=== PATIENT | male | born 1965 | race Two or more races ===

== ENCOUNTER 2022-02-19 08:17 | Inpatient (IN) | payer OTHER ==
[~2022-02-19] VITALS: Ht 165.1 cm; Wt 65.2 kg
[2022-02-19] MEDS ORDERED: SODIUM CHLORIDE 0.9% 1,000 ML IV ONE (08:30)
[2022-02-19] MEDS ORDERED: HYDROcodone-ACET 10/325MG TAB PO ONE (08:30)
[2022-02-19] MEDS ORDERED: ACYCLOVIR 400 MG TAB PO ONE (08:30)
[2022-02-19] MEDS ORDERED: FLEET ENEMA(ADULT) 135 ML PR ONE (08:30)
[2022-02-19 09:08] LABS: Basophils # (auto) 0.2 10 ^3/uL (0-0.2); Basophils % (auto) 2.2 % (0.0-2.0); Eosinophils # (auto) 0 10 ^3/uL (0-0.8); Eosinophils % (auto) 0.5 % (0.0-7.0); Hematocrit 41.6 % (41.0-53.0); Hemoglobin 14.9 g/dL (13.5-17.5); Lymphocytes # (auto) 1.5 10 ^3/uL (0.4-5.4); Lymphocytes % (auto) 17.6 % (10.0-50.0); Mean Corpuscular Hemoglobin 31.2 pg (28.0-32.0); Mean Corpuscular Hgb Conc. 35.8 g/dL (32.0-36.0); Mean Corpuscular Volume 87.3 fL (80.0-100.0); Monocytes # (auto) 0.6 10 ^3/uL (0-1.3); Monocytes % (auto) 6.9 % (0.0-12.0); Neutrophils # (auto) 6.2 10 ^3/uL (1.6-8.6); Neutrophils % (auto) 72.8 % (37.0-80.0); Nucleated Red Blood Cells % 0.1 %; Red Blood Cells 4.76 10^6/uL (4.5-5.90); Red Cell Distribution Width 12.5 % (11.8-14.3); White Blood Cell 8.4 10^3/uL (4.4-10.8)
[2022-02-19 09:27] LABS: Albumin 3.2 g/dL (3.4-5.0)
[2022-02-19 09:31] LABS: BUN/Creatinine Ratio 14.6; Bilirubin, Total 0.8 mg/dL (0.2-1.0); Total Protein 8.1 g/dL (6.4-8.2)
[2022-02-19] MEDS ORDERED: BENZOCAINE (DENTAL) 20 % SPRAY 60ML MT ONE (10:00)
[2022-02-19] MEDS ORDERED: NITROGLYCERIN 0.4 MG SL TAB SL PRN (10:45)
[2022-02-19] MEDS ORDERED: MORPHINE SULFATE INJECTION 2 MG/ML SYRG IV PRN ×2 (10:45)
[2022-02-19] MEDS ORDERED: GASTROGRAFIN 120 ML SOL ONE (11:14)
[2022-02-19] MEDS: SODIUM CHLORIDE 0.9% 1,000 ML IV SCH (11:15)
[2022-02-19] MEDS: ONDANSETRON HCL 4 MG/2 ML VIAL IV PRN ×2 (13:02→22:20)
[2022-02-19 13:58] LABS: INR 1.16 (0.9-1.15)
[2022-02-19] MEDS ORDERED: LABETALOL HCL 5 MG/ML 4ML SYRINGE IV PRN (14:30)
[2022-02-19] MEDS ORDERED: HYDROmorphone HCL 2 MG/ML VL IV PRN (14:30)
[2022-02-19] MEDS ORDERED: ONDANSETRON HCL 4 MG/2 ML VIAL IV ONE (14:30)
[2022-02-19 16:00] VITALS: BP 145/105
[2022-02-19 16:09] VITALS: BP 178/126
[2022-02-19] MEDS: HYDROmorphone HCL 2 MG/ML VL IV PRN ×2 (17:28→22:27)
[2022-02-19 22:00] VITALS: BP 146/114
[2022-02-20] MEDS: SODIUM CHLORIDE 0.9% 1,000 ML IV SCH (01:56)
[2022-02-20 05:00] VITALS: BP 158/99
[2022-02-20] MEDS: HYDROmorphone HCL 2 MG/ML VL IV PRN ×4 (05:08→22:43)
[2022-02-20] MEDS: ONDANSETRON HCL 4 MG/2 ML VIAL IV PRN ×3 (05:08→23:14)
[2022-02-20] MEDS ORDERED: BISACODYL 5 MG EC TAB PO ONE (08:00)
[2022-02-20 09:00] VITALS: BP 138/101
[2022-02-20] MEDS ORDERED: SODIUM CHLORIDE LOCK 10 ML ONE (09:05)
[2022-02-20] MEDS ORDERED: diphenhdrAMINE HCL 50 MG/1 ML VL ONE (09:06)
[2022-02-20] MEDS: MIDAZOLAM HCL 5 MG/ML-1ML VIAL ONE ×2 (09:36→09:40)
[2022-02-20] MEDS: fentaNYL CITRATE 100 MCG/2 ML VL ONE ×2 (09:36→09:40)
[2022-02-20 12:45] VITALS: BP 114/58
[2022-02-20 12:47] VITALS: BP 133/96
[2022-02-20] MEDS ORDERED: HYDROCORTISONE 2.5% TOPICAL CREAM 30GM TUBE PR PRN ×2 (13:30→14:30)
[2022-02-20] MEDS ORDERED: TPN PER PHARMACY 0 ML IV SCH (15:00)
[2022-02-20 16:35] LABS: Albumin 2.9 g/dL (3.4-5.0); Calcium 8.5 mg/dL (8.5-10.1); Magnesium 2.8 mg/dL (1.6-2.6); Potassium 4.1 mmol/L (3.5-5.1)
[2022-02-20] MEDS: D5W/SOD CHL 0.45%/KCL 20MEQ 1,000 ML IV SCH ×2 (16:35→22:35)
[2022-02-20 16:42] LABS: BUN/Creatinine Ratio 19.5; Bilirubin, Total 0.5 mg/dL (0.2-1.0); Phosphorus 2.3 mg/dL (2.5-4.90); Pre Albumin 9.5 mg/dL (20.0-40.0); Total Protein 6.8 g/dL (6.4-8.2)
[2022-02-20 16:47] VITALS: BP 144/104
[2022-02-20] MEDS ORDERED: POTASSIUM PHOSPHATE 22 MEQ in SODIUM CHL 0.9% 100 ML IV ONE (17:30)
[2022-02-20] MEDS ORDERED: AMINO ACID INFUSION IN D10W 1,000 ML IV NR (20:00)
[2022-02-20] MEDS: SENNA 8.6 MG TAB PO SCH (20:49)
[2022-02-20 21:20] VITALS: BP 163/109
[2022-02-21] MEDS ORDERED: DEXTROSE (50%) 50ML SYRG IV SCH
[2022-02-21] MEDS: ACCU-CHEK COMFORT CURVE STRIP VI SCH ×4 (00:13→18:12)
[2022-02-21] MEDS: HYDROmorphone HCL 2 MG/ML VL IV PRN ×8 (02:13→20:36)
[2022-02-21 05:00] VITALS: BP 129/92
[2022-02-21] MEDS: InsuLIN REG 1unit/0.01ml Soln (100units/ml) SC SCH ×4 (06:00→18:53)
[2022-02-21] MEDS: D5W/SOD CHL 0.45%/KCL 20MEQ 1,000 ML IV SCH ×3 (06:13→23:50)
[2022-02-21] MEDS: ONDANSETRON HCL 4 MG/2 ML VIAL IV PRN (06:21)
[2022-02-21 07:12] LABS: Albumin 2.8 g/dL (3.4-5.0); BUN/Creatinine Ratio 15.9; Calcium 8.3 mg/dL (8.5-10.1); Magnesium 2.5 mg/dL (1.6-2.6); Potassium 4.2 mmol/L (3.5-5.1)
[2022-02-21 07:15] LABS: Bilirubin, Total 0.5 mg/dL (0.2-1.0); Total Protein 6.8 g/dL (6.4-8.2)
[2022-02-21] MEDS ORDERED: ceFAZolin 1GM/50ML 50 ML IV ONE (07:36)
[2022-02-21 09:00] VITALS: BP 126/95
[2022-02-21] MEDS ORDERED: SODIUM PHOSPHATES 40 MEQ in D5W 5% 250 ML IV ONE (10:00)
[2022-02-21] MEDS ORDERED: BUPIVACAINE W/ EPINEPH 0.25% INJ 50ML MDV ONE (12:00)
[2022-02-21] MEDS ORDERED: fentaNYL CITRATE 100 MCG/2 ML VL ONE ×2 (12:03→12:47)
[2022-02-21] MEDS ORDERED: MEPERIDINE HCL (50 MG/ML) 1 ML VIAL ONE (12:03)
[2022-02-21] MEDS ORDERED: SUCCINYLCHOLINE CHLORIDE 20 MG/ML 10ML VIAL IV ONE (12:03)
[2022-02-21] MEDS ORDERED: MIDAZOLAM HCL 2MG/2ML 2ml VIAL (1mg/ml) ONE ×2 (12:03→16:03)
[2022-02-21] MEDS ORDERED: ONDANSETRON HCL 4 MG/2 ML VIAL IV PRN (12:15)
[2022-02-21] MEDS ORDERED: LABETALOL HCL 5 MG/ML 4ML SYRINGE IV PRN (12:15)
[2022-02-21] MEDS ORDERED: MORPHINE SULFATE 4 MG/ML SYR/VIAL IV PRN (12:15)
[2022-02-21] MEDS ORDERED: ePHEDrine SULFATE 50 MG/ML AMP IV PRN (12:15)
[2022-02-21] MEDS ORDERED: MIDAZOLAM HCL 2MG/2ML 2ml VIAL (1mg/ml) IV PRN (12:15)
[2022-02-21] MEDS ORDERED: metroNIDAZOLE 500MG/100ML 100 ML IV ONE (12:19)
[2022-02-21] MEDS ORDERED: ceFAZolin 1GM/50ML 100 ML IV ONE (12:19)
[2022-02-21] MEDS ORDERED: PROPOFOL 10 MG/ML 20 ML IV ONE (12:21)
[2022-02-21] MEDS ORDERED: DexAMETHasone SOD PHOS 10MG/1ML VIAL INJ ONE (12:21)
[2022-02-21] MEDS ORDERED: POVIDONE IODINE 10 % TOPICAL OINT 30GM TOP ONE (14:42)
[2022-02-21] MEDS ORDERED: HYDROmorphone HCL 2 MG/ML VL ONE (15:24)
[2022-02-21] MEDS ORDERED: MORPHINE SULFATE INJECTION 2 MG/ML SYRG ONE (15:54)
[2022-02-21 17:00] VITALS: BP 113/82
[2022-02-21] MEDS ORDERED: LIDOCAINE 1% (LOCAL ANESTH.) PF 5ml SDV ID ONE (18:45)
[2022-02-21] MEDS ORDERED: TPN PER PHARMACY IV NR ×8 (20:00)
[2022-02-21] MEDS: SODIUM CHLOR 0.9% PF (SALINE LOCK) 10ML VIAL/SYR IV SCH (21:27)
[2022-02-21 22:00] VITALS: BP 131/88
[2022-02-21] MEDS: SENNA 8.6 MG TAB PO SCH (22:00)
[2022-02-22] MEDS: InsuLIN REG 1unit/0.01ml Soln (100units/ml) SC SCH ×5 (00:31→23:59)
[2022-02-22] MEDS: HYDROmorphone HCL 2 MG/ML VL IV PRN ×9 (00:39→23:57)
[2022-02-22 05:00] VITALS: BP 140/88
[2022-02-22] MEDS: ACCU-CHEK COMFORT CURVE STRIP VI SCH ×5 (06:11→23:59)
[2022-02-22 06:19] LABS: Potassium 4.2 mmol/L (3.5-5.1)
[2022-02-22 06:34] LABS: Albumin 2.3 g/dL (3.4-5.0); BUN/Creatinine Ratio 18.1; Bilirubin, Total 1.2 mg/dL (0.2-1.0); Calcium 7.5 mg/dL (8.5-10.1); Magnesium 2.3 mg/dL (1.6-2.6); Phosphorus 2.6 mg/dL (2.5-4.90); Total Protein 5.5 g/dL (6.4-8.2)
[2022-02-22 09:00] VITALS: BP 137/96
[2022-02-22] MEDS: SODIUM CHLOR 0.9% PF (SALINE LOCK) 10ML VIAL/SYR IV SCH ×2 (10:41→21:26)
[2022-02-22 13:00] VITALS: BP 128/81
[2022-02-22 17:01] VITALS: BP 142/95
[2022-02-22] MEDS ORDERED: TPN PER PHARMACY IV NR ×8 (20:00)
[2022-02-22] MEDS: SENNA 8.6 MG TAB PO SCH (21:26)
[2022-02-22 22:00] VITALS: BP 125/80
[2022-02-23] MEDS: HYDROmorphone HCL 2 MG/ML VL IV PRN ×5 (03:40→18:35)
[2022-02-23 05:00] VITALS: BP 123/78
[2022-02-23] MEDS: ACCU-CHEK COMFORT CURVE STRIP VI SCH ×4 (06:15→23:36)
[2022-02-23] MEDS: InsuLIN REG 1unit/0.01ml Soln (100units/ml) SC SCH ×4 (06:22→23:33)
[2022-02-23 06:28] LABS: Basophils # (auto) 0 10 ^3/uL (0-0.2); Basophils % (auto) 0.3 % (0.0-2.0); Eosinophils # (auto) 0.2 10 ^3/uL (0-0.8); Eosinophils % (auto) 2.1 % (0.0-7.0); Hematocrit 33.7 % (41.0-53.0); Hemoglobin 12.1 g/dL (13.5-17.5); Lymphocytes % (auto) 9.9 % (10.0-50.0); Mean Corpuscular Hemoglobin 31.4 pg (28.0-32.0); Mean Corpuscular Hgb Conc. 35.9 g/dL (32.0-36.0); Mean Corpuscular Volume 87.5 fL (80.0-100.0); Monocytes # (auto) 0.7 10 ^3/uL (0-1.3); Monocytes % (auto) 6.7 % (0.0-12.0); Red Blood Cells 3.85 10^6/uL (4.5-5.90); Red Cell Distribution Width 12.9 % (11.8-14.3); White Blood Cell 9.9 10^3/uL (4.4-10.8)
[2022-02-23 06:34] LABS: Potassium 4.1 mmol/L (3.5-5.1)
[2022-02-23 06:40] LABS: Albumin 2.2 g/dL (3.4-5.0); BUN/Creatinine Ratio 22.2; Calcium 7.9 mg/dL (8.5-10.1); Magnesium 2.3 mg/dL (1.6-2.6)
[2022-02-23 06:54] LABS: Bilirubin, Total 0.7 mg/dL (0.2-1.0); Phosphorus 2.5 mg/dL (2.5-4.90); Total Protein 5.8 g/dL (6.4-8.2)
[2022-02-23 09:00] VITALS: BP 114/78
[2022-02-23] MEDS: SODIUM CHLOR 0.9% PF (SALINE LOCK) 10ML VIAL/SYR IV SCH ×2 (09:26→23:33)
[2022-02-23] MEDS ORDERED: SODIUM PHOSP 20MEQ(15MMOL) IN NS 100 ML IV ONE (12:00)
[2022-02-23 13:00] VITALS: BP 105/66
[2022-02-23 17:00] VITALS: BP 113/73
[2022-02-23] MEDS ORDERED: TPN PER PHARMACY IV NR ×10 (20:00)
[2022-02-23] MEDS: SENNA 8.6 MG TAB PO SCH (21:52)
[2022-02-23 22:00] VITALS: BP 112/67
[2022-02-24] VITALS (7 sets, daily range): BP systolic 113–178; BP diastolic 70–126
[2022-02-24] MEDS: HYDROmorphone HCL 2 MG/ML VL IV PRN ×3 (05:23→20:00)
[2022-02-24] MEDS: InsuLIN REG 1unit/0.01ml Soln (100units/ml) SC SCH ×3 (05:37→17:46)
[2022-02-24] MEDS: ACCU-CHEK COMFORT CURVE STRIP VI SCH ×3 (05:38→17:46)
[2022-02-24 06:59] LABS: Potassium 5.2 mmol/L (3.5-5.1)
[2022-02-24 07:07] LABS: Albumin 2.1 g/dL (3.4-5.0); BUN/Creatinine Ratio 26.7; Bilirubin, Total 0.7 mg/dL (0.2-1.0); Magnesium 2.4 mg/dL (1.6-2.6); Phosphorus 3.3 mg/dL (2.5-4.90); Total Protein 6.2 g/dL (6.4-8.2)
[2022-02-24] MEDS ORDERED: AMINO ACID INFUSION IN D10W 1,000 ML IV NR (10:00)
[2022-02-24] MEDS: SODIUM CHLOR 0.9% PF (SALINE LOCK) 10ML VIAL/SYR IV SCH ×2 (10:00→21:02)
[2022-02-24] MEDS: TPN PER PHARMACY IV NR ×8 (20:00)
[2022-02-24] MEDS: SENNA 8.6 MG TAB PO SCH (21:01)
[2022-02-25] MEDS: ACCU-CHEK COMFORT CURVE STRIP VI SCH ×5 (00:13→23:31)
[2022-02-25] MEDS: HYDROmorphone HCL 2 MG/ML VL IV PRN ×3 (03:25→20:36)
[2022-02-25 04:51] LABS: Basophils # (auto) 0.1 10 ^3/uL (0-0.2); Basophils % (auto) 0.8 % (0.0-2.0); Eosinophils # (auto) 0.2 10 ^3/uL (0-0.8); Eosinophils % (auto) 2.7 % (0.0-7.0); Hematocrit 32.6 % (41.0-53.0); Hemoglobin 11.6 g/dL (13.5-17.5); Lymphocytes % (auto) 15.5 % (10.0-50.0); Mean Corpuscular Hemoglobin 31.1 pg (28.0-32.0); Mean Corpuscular Hgb Conc. 35.6 g/dL (32.0-36.0); Mean Corpuscular Volume 87.2 fL (80.0-100.0); Monocytes # (auto) 0.6 10 ^3/uL (0-1.3); Monocytes % (auto) 9.1 % (0.0-12.0); Neutrophils # (auto) 4.6 10 ^3/uL (1.6-8.6); Neutrophils % (auto) 71.9 % (37.0-80.0); Red Blood Cells 3.74 10^6/uL (4.5-5.90); Red Cell Distribution Width 12.7 % (11.8-14.3); White Blood Cell 6.4 10^3/uL (4.4-10.8)
[2022-02-25 05:00] VITALS: BP 109/70
[2022-02-25 05:10] LABS: Albumin 2.5 g/dL (3.4-5.0); Calcium 8.4 mg/dL (8.5-10.1); Magnesium 2.5 mg/dL (1.6-2.6); Potassium 4.1 mmol/L (3.5-5.1)
[2022-02-25 05:12] LABS: BUN/Creatinine Ratio 26.7; Phosphorus 3.2 mg/dL (2.5-4.90); Total Protein 6.9 g/dL (6.4-8.2)
[2022-02-25] MEDS: InsuLIN REG 1unit/0.01ml Soln (100units/ml) SC SCH ×5 (05:19→23:31)
[2022-02-25 09:00] VITALS: BP 121/77
[2022-02-25] MEDS: SODIUM CHLOR 0.9% PF (SALINE LOCK) 10ML VIAL/SYR IV SCH ×2 (10:00→22:08)
[2022-02-25] MEDS: TPN PER PHARMACY IV NR ×8 (10:01)
[2022-02-25 14:09] VITALS: BP 134/77
[2022-02-25 17:13] VITALS: BP 118/68
[2022-02-25] MEDS ORDERED: SODIUM PHOSPHATES IV NR ×9 (20:00)
[2022-02-25] MEDS ORDERED: [UNRECOGNIZED DRUG - OTHER] IV NR ×9 (20:00)
[2022-02-25] MEDS ORDERED: SODIUM CHLORIDE IV NR ×9 (20:00)
[2022-02-25] MEDS ORDERED: FAT EMULSION IV NR ×9 (20:00)
[2022-02-25] MEDS: SENNA 8.6 MG TAB PO SCH (21:53)
[2022-02-25 22:00] VITALS: BP 123/78
[2022-02-26 05:00] VITALS: BP 120/80
[2022-02-26] MEDS: InsuLIN REG 1unit/0.01ml Soln (100units/ml) SC SCH (05:59)
[2022-02-26] MEDS: ACCU-CHEK COMFORT CURVE STRIP VI SCH (05:59)
[2022-02-26 06:22] LABS: Potassium 3.9 mmol/L (3.5-5.1)
[2022-02-26 06:32] LABS: Albumin 2.3 g/dL (3.4-5.0); Bilirubin, Total 0.5 mg/dL (0.2-1.0); Calcium 8.1 mg/dL (8.5-10.1); Magnesium 2.6 mg/dL (1.6-2.6); Phosphorus 3.6 mg/dL (2.5-4.90); Total Protein 6.3 g/dL (6.4-8.2)
[2022-02-26] MEDS ORDERED: HYD25TP PR (08:30)
[2022-02-26] MEDS ORDERED: HYDR-4798 PO (08:30)
[2022-02-26 09:27] VITALS: BP 120/74
[2022-02-26] MEDS: SODIUM CHLOR 0.9% PF (SALINE LOCK) 10ML VIAL/SYR IV SCH (10:00)
[2022-02-26 11:00] VITALS: BP 120/74
== END 2022-02-26 12:15 | disposition home health service (06) | DRG 330 ==
LOC: ER 08:17 → OVERFLOW 10:38 → CENTRAL 15:39 → TELE-CENTR 17:10
PROVIDERS: ADMIT Internal Medicine; ATTEND Internal Medicine
PROC: 0DJD8ZZ Inspection of Lower Intestinal Tract, Via Natural or Artificial Opening Endoscopic (ICD-10-PCS; 2022-02-20)
PROC: 0DBN0ZZ Excision of Sigmoid Colon, Open Approach (ICD-10-PCS; 2022-02-21)
PROC: 02HV33Z Insertion of Infusion Device into Superior Vena Cava, Percutaneous Approach (ICD-10-PCS; 2022-02-21)
PROC: 0D1N0Z4 Bypass Sigmoid Colon to Cutaneous, Open Approach (ICD-10-PCS; principal; 2022-02-21 12:30)
DX: K57.30 Diverticulosis of large intestine without perforation or abscess without bleeding (principal); K56.699 Other intestinal obstruction unspecified as to partial versus complete obstruction; K64.4 Residual hemorrhoidal skin tags; E87.5 Hyperkalemia; Z20.822 Contact with and (suspected) exposure to COVID-19; K59.00 Constipation, unspecified
CPT/HCPCS: 36415; 36569; 45378; 71045; 74176; 74250; 80053; 80069; 82040; 82962; 83605; 83735; 84100; 84132; 84478; 84484; 85025; 85610; 86850; 86900; 86901; 87040; 96361; 96374; 96375; 96376; 97163; G0378; J0330; J0690; J1100; J1815; J2250; J2405; J2704; J3490; J7060; J7131

== ENCOUNTER → 2023-05-14 | Day surgery (SDC) | payer OTHER ==
[2023-05-12 15:05] LABS: Basophils # (auto) 0.1 10 ^3/uL (0-0.2); Basophils % (auto) 0.7 % (0.0-2.0); Eosinophils # (auto) 0.2 10 ^3/uL (0-0.8); Hematocrit 44.6 % (41.0-53.0); Hemoglobin 15.5 g/dL (13.5-17.5); Lymphocytes # (auto) 2.5 10 ^3/uL (0.4-5.4); Lymphocytes % (auto) 32.9 % (10.0-50.0); Mean Corpuscular Hemoglobin 31.9 pg (28.0-32.0); Mean Corpuscular Hgb Conc. 34.8 g/dL (32.0-36.0); Mean Corpuscular Volume 91.7 fL (80.0-100.0); Monocytes # (auto) 0.6 10 ^3/uL (0-1.3); Monocytes % (auto) 7.7 % (0.0-12.0); Neutrophils # (auto) 4.4 10 ^3/uL (1.6-8.6); Neutrophils % (auto) 56.7 % (37.0-80.0); Nucleated Red Blood Cells % 0.2 %; Red Blood Cells 4.86 10^6/uL (4.5-5.90); Red Cell Distribution Width 13.3 % (11.8-14.3); White Blood Cell 7.7 10^3/uL (4.4-10.8)
[2023-05-12 15:14] LABS: Urine Bacteria NONE SEEN /hpf (None Seen); Urine Blood Negative /uL (Negative); Urine Mucus FEW (None Seen); Urine Specific Gravity 1.025 (1.001-1.035); Urine WBC 3 /hpf (0 - 3)
[2023-05-12 15:18] LABS: Albumin 3.9 g/dL (3.4-5.0); Calcium 8.2 mg/dL (8.5-10.1); Potassium 4.1 mmol/L (3.5-5.1)
[2023-05-12 15:21] LABS: BUN/Creatinine Ratio 17.9 (10.0-20.0); Bilirubin, Total 0.6 mg/dL (0.2-1.0); Total Protein 7.7 g/dL (6.4-8.2)
[2023-05-12 15:29] LABS: INR 1.05 (0.9-1.15); Partial Thromboplastin Time 30.4 sec (24.6-33.4)
[~2023-05-14] VITALS: Ht 165.1 cm; Wt 63.5 kg
[~2023-05-14] MED LIST: LIDOCAINE 2% (LOCAL ANESTH.) PF 5ml SDV ONE; PROPOFOL 10 MG/ML 20 ML IV ONE
[2023-05-14 14:45] VITALS: BP 112/83
== END | disposition home or self-care (01) ==
LOC: GI 12:40
PROVIDERS: ATTEND Internal Medicine Gastroenterology
DX: K57.92 Diverticulitis of intestine, part unspecified, without perforation or abscess without bleeding (principal); K57.30 Diverticulosis of large intestine without perforation or abscess without bleeding; K64.8 Other hemorrhoids; Z98.890 Other specified postprocedural states
CPT/HCPCS: 36415; 44388; 80053; 81001; 85025; 85610; 85730; J2001; J2704; J7030

== ENCOUNTER 2023-10-01 06:46 | Inpatient (IN) | payer OTHER ==
[2023-09-19 10:10] LABS: Basophils # (auto) 0 10 ^3/uL (0-0.2); Eosinophils # (auto) 0.1 10 ^3/uL (0-0.8); Eosinophils % (auto) 2.2 % (0.0-7.0); Hematocrit 43.8 % (41.0-53.0); Hemoglobin 15.2 g/dL (13.5-17.5); Lymphocytes # (auto) 1.6 10 ^3/uL (0.4-5.4); Mean Corpuscular Hgb Conc. 34.7 g/dL (32.0-36.0); Mean Corpuscular Volume 92.2 fL (80.0-100.0); Monocytes # (auto) 0.5 10 ^3/uL (0-1.3); Monocytes % (auto) 9.9 % (0.0-12.0); Neutrophils # (auto) 2.7 10 ^3/uL (1.6-8.6); Neutrophils % (auto) 54.9 % (37.0-80.0); Nucleated Red Blood Cells % 0.3 %; Red Blood Cells 4.76 10^6/uL (4.5-5.90); Red Cell Distribution Width 13.1 % (11.8-14.3); White Blood Cell 4.9 10^3/uL (4.4-10.8)
[2023-09-19 10:30] LABS: INR 1.09 (0.9-1.15); Partial Thromboplastin Time 29.8 SEC (24.5-34.5); Prothrombin Time 11.4 sec (9.3-11.8)
[2023-09-19 10:31] LABS: Urine Bacteria NONE SEEN /hpf (None Seen); Urine Blood Negative /uL (Negative); Urine Clarity HAZY (Clear); Urine Color Yellow (Yellow); Urine Mucus FEW (None Seen); Urine Protein, UAD TRACE (Negative); Urine Specific Gravity 1.025 (1.001-1.035); Urine Urobilinogen Normal (Negative); Urine WBC 6 /hpf (0 - 3); Urine pH 7.5 (5.0-8.0)
[2023-09-19 11:24] LABS: Alanine Aminotransferase 17 U/L (7-40); Albumin 4.3 g/dL (3.2-4.8); Alkaline Phosphatase 108 U/L (46-116); Anion Gap 6 (5-15); Aspartate Aminotransferase 18 U/L (13-40); BUN/Creatinine Ratio 14.8 (10.0-20.0); Bilirubin, Total 0.7 mg/dL (0.2-1.0); Blood Urea Nitrogen 13 mg/dL (9-23); Calcium 9.3 mg/dL (8.5-10.1); Carbon Dioxide 29 mmol/L (20-30); Chloride 107 mmol/L (98-107); Glucose 92 mg/dL (74-106); Potassium 4.1 mmol/L (3.5-5.1); Sodium 142 mmol/L (136-145); Total Protein 7.6 g/dL (5.7-8.2)
[~2023-10-01] VITALS: Ht 165.1 cm; Wt 70.0 kg
[2023-10-01] MEDS ORDERED: ceFAZolin 2 GM/D5W100ml 100 ML IV ONE (07:25)
[2023-10-01] MEDS ORDERED: KETOROLAC TROMETH 30 MG/ML 1ML VIAL ONE (09:36)
[2023-10-01] MEDS ORDERED: HYDROmorphone HCL 2 MG/ML VL/or syr ONE (09:36)
[2023-10-01] MEDS ORDERED: fentaNYL CITRATE 100 MCG/2 ML VL ONE ×2 (09:36→14:11)
[2023-10-01] MEDS ORDERED: PROPOFOL 10 MG/ML 20 ML IV ONE (09:36)
[2023-10-01] MEDS ORDERED: ePHEDrine SULFATE 50 MG/ML AMP ONE (09:36)
[2023-10-01] MEDS ORDERED: GLYCOPYRROLATE 0.2 MG/ML 1ML VIAL ONE (09:36)
[2023-10-01] MEDS ORDERED: LIDOCAINE 2% (LOCAL ANESTH.) PF 5ml SDV ONE (09:36)
[2023-10-01] MEDS ORDERED: DexAMETHasone SOD PHOS 10MG/1ML VIAL INJ ONE (09:36)
[2023-10-01] MEDS ORDERED: MIDAZOLAM HCL 2MG/2ML 2ml VIAL (1mg/ml) ONE (09:36)
[2023-10-01] MEDS ORDERED: ONDANSETRON HCL 4 MG/2 ML VIAL IV PRN ×3 (14:30→17:00)
[2023-10-01 14:50] VITALS: PULSE 94; RESP 11; O2SAT 100
[2023-10-01] MEDS: HYDROmorphone HCL 2 MG/ML VL/or syr IV PRN ×4 (15:35→18:26)
[2023-10-01] MEDS ORDERED: NITROGLYCERIN 0.4 MG SL TAB SL PRN (17:00)
[2023-10-01] MEDS ORDERED: MORPHINE SULFATE INJ 2 MG/ml SYRG IV PRN (17:00)
[2023-10-01 18:15] VITALS: BP 137/89; PULSE 101; RESP 18; TEMP 97.7; O2SAT 100
[2023-10-01 18:28] VITALS: PULSE 101; RESP 18; O2SAT 100
[2023-10-01 20:00] VITALS: PULSE 113
[2023-10-01] MEDS: POTASSIUM CHLORIDE 20 MEQ in D5W/LACTATED RINGERS 1,000 ML IV SCH (21:06)
[2023-10-01] MEDS: ceFAZolin 1GM/50ML 50 ML IV SCH (21:16)
[2023-10-01 22:00] VITALS: BP 127/79; PULSE 92; RESP 20; TEMP 98.4; O2SAT 94
[2023-10-01] MEDS: metroNIDAZOLE 500MG/100ML 100 ML IV SCH (22:40)
[2023-10-02] VITALS (7 sets, daily range): BP systolic 120–149; BP diastolic 70–98; PULSE 71–113; RESP 16–20; TEMP 98–99.3; O2SAT 93–98
[2023-10-02] MEDS: HYDROmorphone HCL 2 MG/ML VL/or syr IV PRN ×5 (00:58→20:15)
[2023-10-02] MEDS: ceFAZolin 1GM/50ML 50 ML IV SCH ×3 (05:19→21:50)
[2023-10-02] MEDS: metroNIDAZOLE 500MG/100ML 100 ML IV SCH ×3 (06:11→22:34)
[2023-10-02 07:00] LABS: Basophils # (auto) 0 10 ^3/uL (0-0.2); Basophils % (auto) 0.3 % (0.0-2.0); Eosinophils # (auto) 0 10 ^3/uL (0-0.8); Eosinophils % (auto) 0.1 % (0.0-7.0); Hematocrit 37.7 % (41.0-53.0); Lymphocytes # (auto) 0.8 10 ^3/uL (0.4-5.4); Mean Corpuscular Hemoglobin 32.2 pg (28.0-32.0); Mean Corpuscular Hgb Conc. 34.6 g/dL (32.0-36.0); Mean Corpuscular Volume 93.2 fL (80.0-100.0); Monocytes # (auto) 0.6 10 ^3/uL (0-1.3); Monocytes % (auto) 6.5 % (0.0-12.0); Neutrophils # (auto) 7.6 10 ^3/uL (1.6-8.6); Neutrophils % (auto) 84.1 % (37.0-80.0); Red Blood Cells 4.05 10^6/uL (4.5-5.90); Red Cell Distribution Width 13.8 % (11.8-14.3)
[2023-10-02 07:03] LABS: Alanine Aminotransferase 14 U/L (7-40); Alkaline Phosphatase 65 U/L (46-116); Anion Gap 6 (5-15); Aspartate Aminotransferase 23 U/L (13-40); BUN/Creatinine Ratio 8.6 (10.0-20.0); Blood Urea Nitrogen 8 mg/dL (9-23); Calcium 7.9 mg/dL (8.5-10.1); Carbon Dioxide 28 mmol/L (20-30); Chloride 105 mmol/L (98-107); Glucose 129 mg/dL (74-106); Potassium 4.2 mmol/L (3.5-5.1); Sodium 139 mmol/L (136-145)
[2023-10-02 07:04] LABS: Albumin 3.1 g/dL (3.2-4.8); Bilirubin, Total 1.2 mg/dL (0.2-1.0); Total Protein 5.3 g/dL (5.7-8.2)
[2023-10-02] MEDS: POTASSIUM CHLORIDE 20 MEQ in D5W/LACTATED RINGERS 1,000 ML IV SCH ×2 (09:50→20:48)
[2023-10-02] MEDS: PANTOPRAZOLE 40 MG/10 ML VIAL INJ IV SCH (09:53)
[2023-10-03] VITALS (8 sets, daily range): BP systolic 116–134; BP diastolic 73–94; PULSE 80–107; RESP 16–20; TEMP 98–99.6; O2SAT 92–98
[2023-10-03] MEDS: HYDROmorphone HCL 2 MG/ML VL/or syr IV PRN ×5 (00:31→21:09)
[2023-10-03 05:09] LABS: Basophils # (auto) 0 10 ^3/uL (0-0.2); Basophils % (auto) 0.3 % (0.0-2.0); Eosinophils # (auto) 0.1 10 ^3/uL (0-0.8); Eosinophils % (auto) 0.6 % (0.0-7.0); Lymphocytes # (auto) 1.1 10 ^3/uL (0.4-5.4); Lymphocytes % (auto) 11.1 % (10.0-50.0); Mean Corpuscular Hemoglobin 32.5 pg (28.0-32.0); Mean Corpuscular Volume 92.7 fL (80.0-100.0); Monocytes # (auto) 0.7 10 ^3/uL (0-1.3); Monocytes % (auto) 7.2 % (0.0-12.0); Neutrophils # (auto) 8.3 10 ^3/uL (1.6-8.6); Neutrophils % (auto) 80.8 % (37.0-80.0); Red Blood Cells 3.99 10^6/uL (4.5-5.90); Red Cell Distribution Width 13.5 % (11.8-14.3); White Blood Cell 10.2 10^3/uL (4.4-10.8)
[2023-10-03 05:47] LABS: Alanine Aminotransferase 12 U/L (7-40); Albumin 3.5 g/dL (3.2-4.8); Alkaline Phosphatase 78 U/L (46-116); Anion Gap 5 (5-15); Aspartate Aminotransferase 20 U/L (13-40); BUN/Creatinine Ratio 6.6 (10.0-20.0); Blood Urea Nitrogen 5 mg/dL (9-23); Calcium 8.5 mg/dL (8.7-10.4); Carbon Dioxide 25 mmol/L (20-30); Chloride 103 mmol/L (98-107); Glucose 112 mg/dL (74-106); Potassium 4.2 mmol/L (3.5-5.1)
[2023-10-03 05:48] LABS: Bilirubin, Total 1.9 mg/dL (0.2-1.0)
[2023-10-03] MEDS: ceFAZolin 1GM/50ML 50 ML IV SCH ×3 (05:54→21:32)
[2023-10-03 05:57] LABS: Sodium 133 mmol/L (136-145)
[2023-10-03] MEDS: metroNIDAZOLE 500MG/100ML 100 ML IV SCH ×3 (06:37→22:09)
[2023-10-03] MEDS: POTASSIUM CHLORIDE 20 MEQ in D5W/LACTATED RINGERS 1,000 ML IV SCH ×2 (06:38→17:51)
[2023-10-03] MEDS: PANTOPRAZOLE 40 MG/10 ML VIAL INJ IV SCH (10:31)
[2023-10-04] VITALS (8 sets, daily range): BP systolic 110–131; BP diastolic 75–91; PULSE 80–86; RESP 14–20; TEMP 98.1–98.8; O2SAT 94–97
[2023-10-04] MEDS: HYDROmorphone HCL 2 MG/ML VL/or syr IV PRN ×5 (01:00→18:40)
[2023-10-04] MEDS: POTASSIUM CHLORIDE 20 MEQ in D5W/LACTATED RINGERS 1,000 ML IV SCH ×3 (03:06→23:18)
[2023-10-04] MEDS: ceFAZolin 1GM/50ML 50 ML IV SCH ×3 (05:37→21:30)
[2023-10-04] MEDS: metroNIDAZOLE 500MG/100ML 100 ML IV SCH ×3 (06:09→22:04)
[2023-10-04] MEDS: PANTOPRAZOLE 40 MG/10 ML VIAL INJ IV SCH (09:38)
[2023-10-04] MEDS ORDERED: CLINIMIX PER PHARMACY 0 ML IV SCH (15:30)
[2023-10-04 17:00] LABS: Albumin 3.6 g/dL (3.2-4.8); Alkaline Phosphatase 76 U/L (46-116); Anion Gap 7 (5-15); Aspartate Aminotransferase 15 U/L (13-40); BUN/Creatinine Ratio 9.6 (10.0-20.0); Blood Urea Nitrogen 7 mg/dL (9-23); Calcium 8.6 mg/dL (8.7-10.4); Carbon Dioxide 26 mmol/L (20-30); Chloride 102 mmol/L (98-107); Glucose 97 mg/dL (74-106); Magnesium 1.8 mg/dL (1.6-2.6); Potassium 4.2 mmol/L (3.5-5.1); Sodium 135 mmol/L (136-145)
[2023-10-04 17:01] LABS: Alanine Aminotransferase < 9 U/L (7-40); Phosphorus 2.3 mg/dL (2.4-5.1); Total Protein 6.3 g/dL (5.7-8.2)
[2023-10-04] MEDS ORDERED: SODIUM PHOSPHATES 20 MEQ in SODIUM CHL 0.9% 100 ML IV ONE (18:00)
[2023-10-04] MEDS ORDERED: AMINO ACID INFUSION IN D10W 1,000 ML IV NR (20:00)
[2023-10-04] MEDS ORDERED: DEXTROSE (50%) 50ML SYRG IV SCH (20:00)
[2023-10-05] VITALS (8 sets, daily range): BP systolic 112–129; BP diastolic 81–98; PULSE 81–106; RESP 12–18; TEMP 97.7–98.5; O2SAT 95–98
[2023-10-05] MEDS: HYDROmorphone HCL 2 MG/ML VL/or syr IV PRN (00:57)
[2023-10-05] MEDS: ACCU-CHEK COMFORT CURVE STRIP VI SCH ×2 (06:00)
[2023-10-05] MEDS: metroNIDAZOLE 500MG/100ML 100 ML IV SCH ×3 (06:00→22:00)
[2023-10-05] MEDS: ceFAZolin 1GM/50ML 50 ML IV SCH ×3 (06:00→23:00)
[2023-10-05] MEDS: InsuLIN REG 1unit/0.01ml Soln (100units/ml) SC SCH ×2 (06:00)
[2023-10-05] MEDS: PANTOPRAZOLE 40 MG/10 ML VIAL INJ IV SCH (08:55)
[2023-10-05] MEDS: POTASSIUM CHLORIDE 20 MEQ in D5W/LACTATED RINGERS 1,000 ML IV SCH (10:18)
[2023-10-05] MEDS ORDERED: MORPHINE SULFATE INJ 2 MG/ml SYRG IV PRN ×2 (12:00)
[2023-10-06] VITALS (7 sets, daily range): BP systolic 124–134; BP diastolic 79–92; PULSE 73–98; RESP 16–18; TEMP 97.7–98.6; O2SAT 92–98
[2023-10-06] MEDS: POTASSIUM CHLORIDE 20 MEQ in D5W/LACTATED RINGERS 1,000 ML IV SCH ×3 (04:50→15:42)
[2023-10-06] MEDS: metroNIDAZOLE 500MG/100ML 100 ML IV SCH ×3 (05:00→21:37)
[2023-10-06] MEDS: ceFAZolin 1GM/50ML 50 ML IV SCH ×3 (06:00→21:37)
[2023-10-06] MEDS: PANTOPRAZOLE 40 MG/10 ML VIAL INJ IV SCH (09:38)
[2023-10-06 11:00] LABS: Basophils # (auto) 0 10 ^3/uL (0-0.2); Basophils % (auto) 0.7 % (0.0-2.0); Eosinophils # (auto) 0.2 10 ^3/uL (0-0.8); Eosinophils % (auto) 2.9 % (0.0-7.0); Hematocrit 35.8 % (41.0-53.0); Hemoglobin 12.4 g/dL (13.5-17.5); Lymphocytes # (auto) 0.8 10 ^3/uL (0.4-5.4); Mean Corpuscular Hemoglobin 31.8 pg (28.0-32.0); Mean Corpuscular Hgb Conc. 34.6 g/dL (32.0-36.0); Mean Corpuscular Volume 91.7 fL (80.0-100.0); Monocytes # (auto) 0.5 10 ^3/uL (0-1.3); Monocytes % (auto) 9.4 % (0.0-12.0); Neutrophils # (auto) 3.9 10 ^3/uL (1.6-8.6); Nucleated Red Blood Cells % 0.1 %; Red Cell Distribution Width 13.3 % (11.8-14.3); White Blood Cell 5.5 10^3/uL (4.4-10.8)
[2023-10-06 11:32] LABS: Alanine Aminotransferase 11 U/L (7-40); Alkaline Phosphatase 64 U/L (46-116); Anion Gap 7 (5-15); BUN/Creatinine Ratio 14.9 (10.0-20.0); Blood Urea Nitrogen 10 mg/dL (9-23); Calcium 8.9 mg/dL (8.5-10.1); Carbon Dioxide 26 mmol/L (20-30); Chloride 105 mmol/L (98-107); Glucose 123 mg/dL (74-106); Potassium 4.2 mmol/L (3.5-5.1); Sodium 138 mmol/L (136-145)
[2023-10-06 11:33] LABS: Albumin 3.6 g/dL (3.2-4.8); Aspartate Aminotransferase 25 U/L (13-40)
[2023-10-06 11:34] LABS: Bilirubin, Total 0.7 mg/dL (0.2-1.0); Total Protein 6.3 g/dL (5.7-8.2)
[2023-10-07] MEDS: POTASSIUM CHLORIDE 20 MEQ in D5W/LACTATED RINGERS 1,000 ML IV SCH ×2 (01:48→10:08)
[2023-10-07] MEDS: metroNIDAZOLE 500MG/100ML 100 ML IV SCH ×2 (04:44→13:39)
[2023-10-07] MEDS: ceFAZolin 1GM/50ML 50 ML IV SCH ×2 (04:44→13:39)
[2023-10-07 05:00] VITALS: BP 128/74; PULSE 85; RESP 16; O2SAT 98
[2023-10-07 08:00] VITALS: PULSE 98; PULSE 99; RESP 18; O2SAT 96
[2023-10-07 09:00] VITALS: BP 128/88; PULSE 88; RESP 17; TEMP 98; O2SAT 96
[2023-10-07] MEDS: PANTOPRAZOLE 40 MG/10 ML VIAL INJ IV SCH (10:07)
[2023-10-07 13:00] VITALS: BP 124/90; PULSE 86; RESP 19; O2SAT 99
[2023-10-07] MEDS ORDERED: ACET-1080 PO (14:30)
[2023-10-07 14:40] VITALS: BP 124/90; PULSE 87; RESP 18; TEMP 36.7; O2SAT 97
== END 2023-10-07 17:55 | disposition home or self-care (01) | DRG 331 ==
LOC: SUR 06:46 → TELE 17:01 → TELE-WESTW 18:18
PROVIDERS: ADMIT Nurse Practitioner Family; ATTEND Student in an Organized Health Care Education/Training Program
PROC: 0DBE0ZZ Excision of Large Intestine, Open Approach (ICD-10-PCS; principal; 2023-10-01 11:20)
DX: K56.699 Other intestinal obstruction unspecified as to partial versus complete obstruction (principal)
CPT/HCPCS: 36415; 71045; 80053; 81001; 83735; 84100; 85025; 85610; 85730; 86850; 86900; 86901; 93005; 97116; 97163; 97530; C9113; G0378; J0690; J1100; J1885; J2001; J2250; J2704; J3490

== ENCOUNTER 2024-08-17 09:47 | Emergency (ER) | payer OTHER ==
[~2024-08-17] VITALS: Ht 165.1 cm; Wt 63.8 kg
[~2024-08-17 09:47] MED LIST changes: +ACET-1080 PO; -LIDOCAINE 2% (LOCAL ANESTH.) PF 5ml SDV ONE; -PROPOFOL 10 MG/ML 20 ML IV ONE
[2024-08-17 10:20] VITALS: BP 120/87; PULSE 73; RESP 16; TEMP 98.2; O2SAT 97
[2024-08-17] MEDS ORDERED: NAPR-957 PO (11:32)
[2024-08-17] MEDS ORDERED: LIDO5DIS21 TOP (11:32)
== END 2024-08-17 11:48 | disposition home or self-care (01) ==
LOC: ER 09:47
DX: S43.491A Other sprain of right shoulder joint, initial encounter (principal); Z79.899 Other long term (current) drug therapy; W11.XXXA Fall on and from ladder, initial encounter; Y93.89 Activity, other specified; Y92.89 Other specified places as the place of occurrence of the external cause; Y99.8 Other external cause status
CPT/HCPCS: 73030

== ENCOUNTER 2025-04-08 02:18 | Emergency (ER) | payer OTHER ==
[~2025-04-08] VITALS: Ht 165.1 cm; Wt 60.3 kg
[~2025-04-08 02:18] MED LIST changes: +LIDO5DIS21 TOP; +NAPR-957 PO
[2025-04-08 03:19] LABS: Urine Bacteria None Seen /hpf (None Seen)
[2025-04-08 03:49] LABS: Urine Blood Negative /uL (Negative); Urine Clarity Clear (Clear); Urine Color Yellow (Yellow); Urine Mucus FEW (None Seen); Urine Protein, UAD TRACE (Negative); Urine Specific Gravity 1.026 (1.001-1.035); Urine Squamous Epithelial Cell None Seen /hpf (<5); Urine Urobilinogen 3 mg/dL (Negative); Urine WBC 1 /HPF (0-3)
--- NOTE | 2025-04-08 04:12 | ED.PDOC ---
GI ASSESSMENT HPI Comments 59-year-old male came to ER for abdominal pain. Patient has history of diverticulitis, status post colon resection, Laparotomy, lysis of adhesions, takedown of colostomy, coloproctostomy 2 years ago. Patient states for the past 3 weeks, he has been having intermittent episodes of epigastric abdominal pain, usually occurring after meals, with the episodes of nausea and vomiting. States he could not keep anything down due to frequent vomiting after eating, with notable loss of appetite. Chief Complaint: Abdominal Pain Time Seen by MD: 04:11 Primary Care Provider: Mati Estrada Notes: Nurses Notes Allergies: Coded Allergies: NO KNOWN ALLERGIES (Unverified , 10/01/23) Home Meds Active Scripts Lidocaine (LIDODERM 5% TOPICAL PATCH) 1 Patch Ph, 1 PATCH TOP DAILY for 30 Days, #30 PATCH 0 Refills Prov:AZALEA BRADFORD NP 08/17/24 Naproxen (Naproxen) 375 Mg Tab, 1 TAB PO BIDPC for 10 Days, #20 TAB 0 Refills Prov:AZALEA BRADFORD NP 08/17/24 Acetaminophen (Tylenol 8 Hour Arthritis) 650 Mg Tab, 650 MG PO Q4HPRN PRN MDD 4000g for 20 Days, #100 TAB 0 Refills Prov:SALVADOR KIRBY DO 10/07/23 Information Source: Patient Mode of Arrival: Ambulatory Timing: Hours Duration: Since onset Quality: Aching, Cramping Vomitus: Watery Stool: Normal Severity: Moderate Recent: Recent Surgery Recent Hx of: Abdominal Surgery Pain Location: Epigastric Associated sign and symptoms: Nausea, Vomiting, Abdominal Pain Review of Systems REVIEW OF SYSTEMS: No fever, no chills, or fatigue HEENT: No sore throat, no earache, no congestion, no neck pain. Cardiac: No chest pain. No palpitations. Lungs: No shortness of breath, no cough. GI: (+) nausea, (+) vomiting, no diarrhea, no constipation, (+) abdominal pain : No dysuria, frequency, or urgency. No hematuria. Musculoskeletal: No joint pain , no joint swelling, no extremity edema. Skin: No rash, no itching. Neuro: No headache, no dizziness, no weakness Vital Signs Vital Signs Date Time Temp Pulse Resp B/P (MAP) Pulse Ox O2 Delivery O2 Flow Rate FiO2 5/9/25 09:55 64 13 120/86 (97) 97 04/08/25 08:00 97.6 97.6 04/08/25 08:00 Room Air* 0 21 Physical Exam General: Awake, alert and oriented. No acute distress. Skin: Skin in warm, dry and intact. Appropriate color for ethnicity. Nailbeds pink with no cyanosis. HEENT: The head is normocephalic and atraumatic. Conjunctivae are clear without exudates or hemorrhage. Sclera is non-icteric. EOM are intact. No signs of nystagmus. Eyelids are normal in appearance without swelling or lesions. Oral mucosa is pink and moist Neck: The neck is supple with normal range of motion. No JVD. Cardiac: Heart rate and rhythm are normal. No murmurs, gallops, or rubs are auscultated. Respiratory: No signs of respiratory distress. Lung sounds are clear in all lobes bilaterally without rales, rhonchi, or wheezes. Abdominal: Abdomen is soft, positive epigastric tenderness without distention or rigidity. Bowel sounds are present and normoactive in all four quadrants. Extremities: Upper and lower extremities are atraumatic in appearance without deformity or edema. Neurological: The patient is awake, alert and oriented to person, place, and time with normal speech. Speech is clear. There is no facial asymmetry. Normal gait Psychiatric: Appropriate mood and affect. Good judgement and insight. Past Medical History PAST MEDICAL HISTORY: Denies Past Medical History (Other): Diverticulitis Surgical History: Denies all surgeries Surgical History (Other): Resection of colon, Laparotomy, lysis of adhesions, takedown of colostomy, coloproctostomy. Social History Smoker: Non-Smoker Alcohol: Sober Drugs: Denies Drug Use Lives In: Home Was a procedure done? Was a procedure done?: No GI differential Dx Differential Diagnosis: Bowel Obstruction, Diverticular disease, Gastritis/PUD, Gastroenteritis, Hernia, Inflammatory BD, Ischemic Bowel, Pancreatitis, UTI, Urolithiasis, Dehydration X-Ray, Labs, Meds, VS Vital Signs Date Time Temp Pulse Resp B/P (MAP) Pulse Ox O2 Delivery O2 Flow Rate FiO2 04/08/25 09:55 64 13 120/86 (97) 97 04/08/25 09:00 57 13 123/85 (98) 97 04/08/25 08:00 97.6 57 16 120/87 (98) 98 97.6 04/08/25 08:00 57 16 98 Room Air* 0 21 04/08/25 05:35 Room Air* 0 21 04/08/25 05:11 98.2 77 15 128/98 (108) 97 98.2 04/08/25 02:50 98.6 75 18 136/95 (109) 94 98.6 Lab Test 04/08/25 03:51 04/08/25 03:14 Range/Units White Blood Count 7.5 4.4-10.8 10^3/uL Red Blood Count 4.81 4.5-5.90 10^6/uL Hemoglobin 15.5 13.5-17.5 g/dL Hematocrit 43.6 41.0-53.0 % Mean Corpuscular Volume 90.6 80.0-100.0 fL Mean Corpuscular Hemoglobin 32.3 H 28.0-32.0 pg Mean Corpuscular Hemoglobin Concent 35.6 32.0-36.0 g/dL Red Cell Distribution Width 13.2 11.8-14.3 % Platelet Count 272 140-450 10^3/uL Mean Platelet Volume 8.7 6.9-10.8 fL Neutrophils (%) (Auto) 57.3 37.0-80.0 % Lymphocytes (%) (Auto) 32.8 10.0-50.0 % Monocytes (%) (Auto) 8.2 0.0-12.0 % Eosinophils (%) (Auto) 1.2 0.0-7.0 % Basophils (%) (Auto) 0.5 0.0-2.0 % Neutrophils # (Auto) 4.3 1.6-8.6 10 ^3/uL Lymphocytes # (Auto) 2.5 0.4-5.4 10 ^3/uL Monocytes # (Auto) 0.6 0-1.3 10 ^3/uL Eosinophils # (Auto) 0.1 0-0.8 10 ^3/uL Basophils # (Auto) 0 0-0.2 10 ^3/uL Nucleated Red Blood Cells 0.0 % Sodium Level 142 136-145 mmol/L Potassium Level 4.1 3.5-5.1 mmol/L Chloride Level 104 98-107 mmol/L Carbon Dioxide Level 30 20-31 mmol/L Anion Gap 8 5-15 Blood Urea Nitrogen 9 9-23 mg/dL Creatinine 0.97 0.700-1.30 mg/dL Glomerular Filtration Rate Calc 89 >90 mL/min BUN/Creatinine Ratio 9.3 L 10.0-20.0 Serum Glucose 90 74-106 mg/dL Lactic Acid Level 1.2 0.4-2.0 mmol/L Calcium Level 9.4 8.7-10.4 mg/dL Total Bilirubin 0.7 0.2-1.0 mg/dL Aspartate Amino Transferase (AST) 21 13-40 U/L Alanine Aminotransferase (ALT) 17 7-40 U/L Alkaline Phosphatase 108 46-116 U/L Total Protein 7.8 5.7-8.2 g/dL Albumin 4.6 3.2-4.8 g/dL Lipase 40 12-53 U/L Urine Color Yellow Yellow Urine Clarity Clear Clear Urine pH 6.0 5.0-9.0 Urine Specific [place] 1.026 1.001-1.035 Urine Protein Trace H Negative Urine Ketones Trace Negative Urine Blood Negative Negative /uL Urine Nitrite Negative Negative Urine Bilirubin Negative Negative Urine Urobilinogen 3 H Negative mg/dL Urine Leukocyte Esterase Negative Negative /uL Urine RBC None seen 0 - 3 /hpf Urine Microscopic WBC 1 0-3 /HPF Urine Squamous Epithelial Cells None seen <5 /hpf Urine Calcium Oxalate Crystals Few None Seen Urine Bacteria None seen None Seen /hpf Urine Mucus Few None Seen Urine Glucose Normal Normal mg/dL Exam: CT CT AB PEL WO CON-NO ORAL OR IV History: Abdominal pain, history of bowel perforation Comparison Study: CT ABD PELVIS WO CONTRAST on DOS: 02/19/22 Technique: Multidetector spiral CT of the abdomen was performed from lung bases to pubic symphysis. Imaging was performed without IV contrast. Axial, coronal and sagittal multiplanar reformats were obtained from the axial data set by the technologist. Radiation Dose : 1. Abdomen/Pelvis: CTDIvol 5.2 mGy, DLP 287.5 mGy*cm. Findings: Evaluation of solid organs is limited due to lack of intravenous contrast use. Lung Bases: No acute or significant lung base finding. Normal heart size. No pleural or pericardial effusion. Liver: The liver is normal in size. No focal lesions. Gallbladder and Biliary Tree: Unremarkable Spleen: Unremarkable Pancreas: The pancreas is grossly normal in appearance. Adrenal Glands: Unremarkable Kidneys: Kidneys are grossly normal without calculi or hydronephrosis. Bladder: Grossly unremarkable for degree of distention. Bowel: The stomach is grossly normal in appearance. Nonspecific bowel-gas pattern with prominent dilated loop of small bowel in the left hemiabdomen. There is a small levine hernia in the left mid to lower abdomen associated with this dilated loop of small bowel. The appendix is not visualized; however, no secondary findings of acute appendicitis identified. Diverticulosis. Ascites: Absent Lymphadenopathy: No mesenteric, retroperitoneal or periportal lymphadenopathy. Abdominal Wall and Mesentery: Small levine hernia in the left mid to lower abdominal wall. Vasculature: The visualized abdominal aorta is normal in size and caliber. Evaluation of abdominal and pelvic vessels is limited due to lack of intravenous contrast. Pelvic Organs: Unremarkable Musculoskeletal: No aggressive focal bony lesions, acute fractures or dislocation. IMPRESSION: Nonspecific bowel-gas pattern with prominent dilated loop of small bowel in the left hemiabdomen. There is a small levine hernia in the left mid to lower abdomen associated with this dilated loop of small bowel. This may be creating a developing or early small bowel obstruction. Close clinical follow-up advised. Surgical consultation could be considered. Time of 1ST Reevaluation: 05:42 Reevaluation 1ST: Unchanged Patient Education/Counseling: Diagnosis, Treatment, Other (Need for admission) Family Education/Counseling: No Family Present Departure 1 Departure Time of Disposition: 05:19 Impression: Primary Impression: Acute abdominal pain Disposition: ADMITTED INPATIENT Condition: Stable Comments 59-year-old male with abdominal pain, loss of appetite, vomiting after eating. CT abdomen and pelvis findings suggestive of early small bowel obstruction. Patient to the admitted to hospitalist service for further treatment, evaluation and monitoring. Critical Care Note Critical Care Time?: No Stability Stability form required: No Heart Score Heart Score: Heart Score Response (Comments) Value History N/A 0 EKG N/A 0 Age N/A 0 Risk Factors N/A 0 Troponin N/A 0 Total 0 I personally scribed for CARLOS RODRIGUEZ MD ([email or web address]) on 04/08/25 at 04:12. Electronically submitted by Basim Harding ([facility]). I personally scribed for CARLOS RODRIGUEZ MD ([email or web address]) on 04/08/25 at 05:43. Electronically submitted by Basim Harding ([facility]). I personally scribed for CARLOS RODRIGUEZ MD ([email or web address]) on 04/08/25 at 05:45. Electronically submitted by Basim Harding ([facility]). CARLOS RODRIGUEZ MD April 08, 2025 04:12
[2025-04-08 04:32] LABS: Basophils # (auto) 0 10 ^3/uL (0-0.2); Basophils % (auto) 0.5 % (0.0-2.0); Eosinophils # (auto) 0.1 10 ^3/uL (0-0.8); Eosinophils % (auto) 1.2 % (0.0-7.0); Hematocrit 43.6 % (41.0-53.0); Hemoglobin 15.5 g/dL (13.5-17.5); Lymphocytes # (auto) 2.5 10 ^3/uL (0.4-5.4); Lymphocytes % (auto) 32.8 % (10.0-50.0); Mean Corpuscular Hemoglobin 32.3 pg (28.0-32.0); Mean Corpuscular Hgb Conc. 35.6 g/dL (32.0-36.0); Mean Corpuscular Volume 90.6 fL (80.0-100.0); Monocytes # (auto) 0.6 10 ^3/uL (0-1.3); Monocytes % (auto) 8.2 % (0.0-12.0); Neutrophils # (auto) 4.3 10 ^3/uL (1.6-8.6); Neutrophils % (auto) 57.3 % (37.0-80.0); Platelet Count (auto) 272 10^3/uL (140-450); Red Blood Cells 4.81 10^6/uL (4.5-5.90); Red Cell Distribution Width 13.2 % (11.8-14.3); White Blood Cell 7.5 10^3/uL (4.4-10.8)
[2025-04-08 04:43] LABS: Alanine Aminotransferase 17 U/L (7-40); Albumin 4.6 g/dL (3.2-4.8); Alkaline Phosphatase 108 U/L (46-116); Anion Gap 8 (5-15); Aspartate Aminotransferase 21 U/L (13-40); BUN/Creatinine Ratio 9.3 (10.0-20.0); Bilirubin, Total 0.7 mg/dL (0.2-1.0); Blood Urea Nitrogen 9 mg/dL (9-23); Calcium 9.4 mg/dL (8.7-10.4); Carbon Dioxide 30 mmol/L (20-31); Chloride 104 mmol/L (98-107); Glucose 90 mg/dL (74-106); Lipase 40 U/L (12-53); Potassium 4.1 mmol/L (3.5-5.1); Sodium 142 mmol/L (136-145); Total Protein 7.8 g/dL (5.7-8.2)
--- NOTE | 2025-04-08 05:05 | DVH ---
Exam: CT CT AB PEL WO CON-NO ORAL OR IV History: Abdominal pain, history of bowel perforation Comparison Study: CT ABD PELVIS WO CONTRAST on DOS: 02/19/22 Technique: Multidetector spiral CT of the abdomen was performed from lung bases to pubic symphysis. I maging was performed without IV contrast. Axial, coronal and sagittal multiplanar reformats were obta ined from the axial data set by the technologist. Radiation Dose : 1. Abdomen/Pelvis: CTDIvol 5.2 mGy, DLP 287.5 mGy*cm. Findings: Evaluation of solid organs is limited due to lack of intravenous contrast use. Lung Bases: No acute or significant lung base finding. Normal heart size. No pleural or pericardial effusion. Liver: The liver is normal in size. No focal lesions. Gallbladder and Biliary Tree: Unremarkable Spleen: Unremarkable Pancreas: The pancreas is grossly normal in appearance. Adrenal Glands: Unremarkable Kidneys: Kidneys are grossly normal without calculi or hydronephrosis. Bladder: Grossly unremarkable for degree of distention. Bowel: The stomach is grossly normal in appearance. Nonspecific bowel-gas pattern with prominent dila estee loop of small bowel in the left hemiabdomen. There is a small levine hernia in the left mid to l ower abdomen associated with this dilated loop of small bowel. The appendix is not visualized; howeve r, no secondary findings of acute appendicitis identified. Diverticulosis. Ascites: Absent Lymphadenopathy: No mesenteric, retroperitoneal or periportal lymphadenopathy. Abdominal Wall and Mesentery: Small levine hernia in the left mid to lower abdominal wall. Vasculature: The visualized abdominal aorta is normal in size and caliber. Evaluation of abdominal a nd pelvic vessels is limited due to lack of intravenous contrast. Pelvic Organs: Unremarkable Musculoskeletal: No aggressive focal bony lesions, acute fractures or dislocation. IMPRESSION: Nonspecific bowel-gas pattern with prominent dilated loop of small bowel in the left hemiabdomen. The re is a small levine hernia in the left mid to lower abdomen associated with this dilated loop of sm all bowel. This may be creating a developing or early small bowel obstruction. Close clinical follow- up advised. Surgical consultation could be considered.
[2025-04-08] MEDS: KETOROLAC TROMETH 30 MG/ML 1ML VIAL IV ONE (05:46)
[2025-04-08 08:00] VITALS: PULSE 57; RESP 16; TEMP 97.6; O2SAT 98
[2025-04-08 09:55] VITALS: BP 120/86; PULSE 64; RESP 13; O2SAT 97
== END 2025-04-08 10:03 | disposition home or self-care (01) ==
LOC: ER 02:18
DX: R10.13 Epigastric pain (principal); R63.0 Anorexia; Z90.49 Acquired absence of other specified parts of digestive tract
CPT/HCPCS: 36415; 74176; 80053; 81001; 83605; 83690; 85025; J1885